=== PATIENT | female | born 1960 | race Caucasian/White ===

== ENCOUNTER 2019-07-05 18:50 | Emergency (ER) | payer OTHER, BC ==
[~2019-07-05] VITALS: Ht 170.2 cm; Wt 138.8 kg
[2019-07-05] MEDS ORDERED: VENTOLIN HFA18 GM INH (19:14)
[2019-07-05] MEDS ORDERED: MONTELUKAST SOD10 MG PO (19:15)
[2019-07-05] MEDS ORDERED: FORTAMET500 MG PO (19:15)
[2019-07-05] MEDS ORDERED: ATORVASTATIN CA20 MG PO (19:15)
== END 2019-07-05 22:02 | disposition home or self-care (01) ==
LOC: ED 18:50
DX: S16.1XXA Strain of muscle, fascia and tendon at neck level, initial encounter (principal); S29.012A Strain of muscle and tendon of back wall of thorax, initial encounter; S39.012A Strain of muscle, fascia and tendon of lower back, initial encounter; E11.9 Type 2 diabetes mellitus without complications; J45.909 Unspecified asthma, uncomplicated; Z88.0 Allergy status to penicillin; Z88.8 Allergy status to other drugs, medicaments and biological substances; Z79.899 Other long term (current) drug therapy; V89.2XXA Person injured in unspecified motor-vehicle accident, traffic, initial encounter
CPT/HCPCS: 72070; 72100; 72125; 73000; 99284-25

== ENCOUNTER 2021-02-21 23:23 | Emergency (ER) | payer BC ==
[~2021-02-21] VITALS: Ht 170.2 cm; Wt 155.0 kg
[~2021-02-21 23:23] MED LIST: ATORVASTATIN CA20 MG PO; FORTAMET500 MG PO; MONTELUKAST SOD10 MG PO; VENTOLIN HFA18 GM INH
== END 2021-02-22 01:57 | disposition home or self-care (01) ==
LOC: ED 23:23
DX: U07.1 COVID-19 (principal); Z23 Encounter for immunization; E11.9 Type 2 diabetes mellitus without complications; J45.909 Unspecified asthma, uncomplicated; Z88.0 Allergy status to penicillin; Z88.1 Allergy status to other antibiotic agents; Z79.899 Other long term (current) drug therapy; Z79.84 Long term (current) use of oral hypoglycemic drugs
CPT/HCPCS: 99283-25; M0243; Q0244